=== PATIENT | male | born 1970 | race Caucasian/White ===

== ENCOUNTER 2023-08-29 08:10 | Outpatient (OUT) | payer BC, SELFPAY ==
[2023-08-29 13:22] LABS: Estimated Average Glucose 183 mg/dL
[2023-08-30 04:11] LABS: Testosterone 250 ng/dL (264-916)
== END 2023-08-29 08:11 | disposition home or self-care (01) ==
LOC: LAB 08:14
PROVIDERS: Visit Provider Internal Medicine
DX: E11.65 Type 2 diabetes mellitus with hyperglycemia (principal)
CPT/HCPCS: 36415; 83036; 84403; G0103